=== PATIENT | male | born 1950 | race Two or more races ===

== ENCOUNTER 2022-08-09 18:50 | Inpatient (IN) | payer MEDICARE, OTHER ==
[~2022-08-09] VITALS: Ht 170.2 cm; Wt 91.6 kg
[2022-08-09] MEDS ORDERED: MORPHINE SULFATE 2 MG/1 ML DISP.SYRIN IV ONE (20:15)
[2022-08-09] MEDS ORDERED: ONDANSETRON 4 MG/2 ML VIAL IV ONE (20:15)
[2022-08-09 20:29] LABS: HEMATOCRIT 39.9 % (36.7-47.1); MEAN CORPUSCULAR VOLUME 86.4 fL (73.0-96.2); PLATELET COUNT (AUTO) 419 K/uL (152-348)
--- NOTE | 2022-08-09 20:35 | NUR ---
Consent for CT of abd/pelvis w/ contrast signed by patient. Dr. Palacios notified of patient's allergy to iodione. Per Dr. Palacios patient to proceed with CT w/contrast. Patient to receive Benadryl 50mg IV.
[2022-08-09] MEDS ORDERED: IV NORMAL SALINE 250 ML IV ONE (20:41)
[2022-08-09] MEDS ORDERED: IOHEXOL 300MG/ML 100 ML INFUS..BTL ONE (20:41)
[2022-08-09] MEDS ORDERED: SWABABLE VALVE TRANSFER SET EA MC ONE (20:41)
[2022-08-09] MEDS ORDERED: MORPHINE SULFATE 4 MG/1 ML DISP.SYRIN ONE (20:42)
[2022-08-09] MEDS ORDERED: ONDANSETRON 4 MG/2 ML VIAL ONE (20:42)
[2022-08-09] MEDS ORDERED: diphenhydrAMINE 50 MG/1 ML VIAL IV ONE (20:45)
[2022-08-09 20:47] LABS: ALANINE AMINOTRANSFERASE 26 U/L (16-63); ALKALINE PHOSPHATASE 103 U/L (50-136); ASPARTATE AMINOTRANSFERASE 14 U/L (15-37); BILIRUBIN,DIRECT 0.1 mg/dL (0.0-0.2); BILIRUBIN,TOTAL 0.5 mg/dL (0.2-1.0); CARBON DIOXIDE 31 mmol/L (21-32); CHLORIDE 101 mmol/L (98-107); CREATININE 0.8 mg/dL (0.6-1.3); GLUCOSE 102 mg/dL (74-106); LIPASE 64 U/L (73-393); POTASSIUM 4.1 mmol/L (3.5-5.1); TOTAL PROTEIN, SERUM 8.1 g/dL (6.4-8.2); UREA NITROGEN, BLOOD 17 mg/dL (7-18)
[2022-08-09] MEDS ORDERED: diphenhydrAMINE 50 MG/1 ML VIAL ONE (20:54)
--- NOTE | 2022-08-09 21:00 | NUR ---
Patient placed in 3L of oxygen via nasal cannula due patient desaturating post admnistration of morphine IV. Patient now oxygen saturating 97%.
--- NOTE | 2022-08-09 21:35 | NUR ---
Patient resting comfortably in bed, no signs of acute distress noted. Patient's family member at bedside.
[2022-08-09] MEDS ORDERED: IV NORMAL SALINE 1000 ML BAG IV ONE (22:15)
[2022-08-09] MEDS ORDERED: PIPERACILLIN SODIUM/TAZOBACTAM 3.375 G in IV DEXTROSE 5% 50 ML IV ONE (22:15)
[2022-08-09] MEDS ORDERED: PIPERACILLIN/TAZOBACTAM/D5W 50 ML IV ONE (22:33)
--- NOTE | 2022-08-09 22:38 | NUR ---
Dr. Palacios speaking with Dr. Reed for general surgery consult.
--- NOTE | 2022-08-09 22:43 | NUR ---
Per pt, unable to remember name of cholesterol and stomach medication.
[2022-08-09] MEDS ORDERED: AMLO-212 PO (22:44)
[2022-08-09] MEDS ORDERED: ASPI81TA31 PO (22:44)
[2022-08-09] MEDS ORDERED: METO25TA6 PO (22:44)
--- NOTE | 2022-08-10 00:12 | NUR ---
Dr. Quintana's on panel call with Pete ERWIN. Pending admission.
[2022-08-10] MEDS ORDERED: MAGNESIUM HYDROXIDE 30 ML LIQUID UDC PO PRN (00:15)
[2022-08-10] MEDS ORDERED: ONDANSETRON 4 MG/2 ML VIAL IV PRN (00:15)
[2022-08-10] MEDS ORDERED: IV NS 1000 ML 1,000 ML IV PRN (00:15)
[2022-08-10] MEDS ORDERED: MORPHINE SULFATE 2 MG/1 ML DISP.SYRIN IV PRN (00:15)
--- NOTE | 2022-08-10 00:32 | NUR ---
Called third floor to give report, RN unavaliable.
--- NOTE | 2022-08-10 00:39 | NUR ---
Report given to Marybel FRANCOIS.
[2022-08-10] MEDS ORDERED: MORPHINE SULFATE 4 MG/1 ML DISP.SYRIN ONE (00:42)
[2022-08-10] MEDS ORDERED: MORPHINE SULFATE 4 MG/1 ML DISP.SYRIN IV ONE (00:45)
[2022-08-10 00:59] LABS: *BILIRUBIN,URIN NEGATIVE (NEGATIVE); *BLOOD, URINE NEGATIVE (NEGATIVE); *CLARITY,URINE CLEAR (CLEAR); *COLOR,URINE YELLOW (YELLOW); *KETONES,URINE NEGATIVE (NEGATIVE); *UROBILINOGEN,URINE 0.2 E.U./dl (NORMAL); LEUKOCYTE ESTERASE ,URINE NEGATIVE (NEGATIVE); NITRITE, URINE NEGATIVE (NEGATIVE); PH,URINE 5.5 (5.0-8.0); UGLUCOSE NEGATIVE (NEGATIVE)
--- NOTE | 2022-08-10 01:14 | NUR ---
Patient taken to third floor room 302 via gurney with personal belongings. Patient in stable condition, no signs of distress noted.
[2022-08-10 01:32] VITALS: BP 124/71
[2022-08-10] MEDS: ENOXAPARIN SODIUM 40 MG/0.4 ML DISP.SYRIN SQ SCH ×2 (02:00→20:09)
--- NOTE | 2022-08-10 02:00 | NUR ---
RECEIVED REPORT FROM ER NURSE LUDY PATIENT IS ALERT BUT GERMAN SPEAKING PT CAME ON UNIT ASLEEP LUDY IN ER STATES"i WILL GIVE PATIENT MEDICATION BECAUSE IS STILL HAVING PAIN. PT IS ALERT AND ORIENTED X4 NO SIGNS OF RESPIRATORY DISTRESS NOTED. PT WAS GIVEN LOVENOX PLATELETS ELEVATED 437. PT TOLERATED WELL. NURSE TOOK INFORMATION FROM RECORDS PATIENT IS TOO TIRED COULDN'T ANSWER ADMISSION QUESTIONS. PT HAS IVF OF NS INFUSING AT 75ML AND HOUR TOLERATING WELL NO SIGNS OF INFILTRATION FROM SITE. PT IS ALSO NPO POSSIBLE SURGERY DR. ODOM FOR SURGERY.
[2022-08-10 04:00] VITALS: BP 106/53
--- NOTE | 2022-08-10 05:04 | NUR ---
PT HAS OXYGEN 3L NASAL CANULA NO SIGNS OF DISTRESS NOTED. WILL CONTINUE TO MONITOR FOR SAFETY. AND ENDORSE ADMISSION TO AM NURSE.
[2022-08-10] MEDS ORDERED: PIPERACILLIN SODIUM/TAZOBACTAM 3.375 G in IV DEXTROSE 5% 50 ML IV SCH (06:00)
--- NOTE | 2022-08-10 08:00 | NUR ---
AWAKE ALERT AND ORIENTED X3 DENIES PAIN OR SOB, NPO ORDERED PENDING SURGICAL CONSULT
[2022-08-10] MEDS: PANTOPRAZOLE SODIUM 40 MG VIAL IV SCH (08:27)
[2022-08-10] MEDS: PIPERACILLIN SODIUM/TAZOBACTAM 3.375 G in IV DEXTROSE 5% 100 ML IV SCH ×3 (08:28→23:19)
[2022-08-10] MEDS ORDERED: CLON0.1T PO (09:40)
[2022-08-10] MEDS ORDERED: ROSU40TA23 PO (09:40)
[2022-08-10] MEDS ORDERED: FLUT1BLS6 INH (09:40)
[2022-08-10] MEDS ORDERED: DOCU250C14 PO (09:40)
[2022-08-10] MEDS ORDERED: SERT-438 MT (09:40)
[2022-08-10] MEDS ORDERED: FOLI-140 MT (09:40)
[2022-08-10] MEDS ORDERED: FERR324T4 PO (09:40)
[2022-08-10] MEDS ORDERED: DILT240C99 MT (09:40)
[2022-08-10] MEDS ORDERED: GABA-532 MT (09:40)
[2022-08-10] MEDS ORDERED: DONE5TAB34 PO (09:40)
[2022-08-10] MEDS ORDERED: MONT10TA33 MT (09:40)
[2022-08-10] MEDS ORDERED: LINA145C MT (09:40)
[2022-08-10] MEDS ORDERED: CLOP75TA33 MT (09:40)
[2022-08-10] MEDS ORDERED: TRAM50TA2 MT (09:40)
[2022-08-10] MEDS ORDERED: ERGO500040 PO (10:29)
[2022-08-10] MEDS ORDERED: CYAN10006 IM (10:29)
[2022-08-10 10:35] LABS: HEMATOCRIT 39.9 % (36.7-47.1); MEAN CORPUSCULAR VOLUME 87.7 fL (73.0-96.2); PLATELET COUNT (AUTO) 397 K/uL (152-348)
[2022-08-10] MEDS: IV D5/ 0.9% NACL 1,000 ML IV PRN (10:35)
[2022-08-10 11:02] LABS: CREATININE 0.8 mg/dL (0.6-1.3); POTASSIUM 4.6 mmol/L (3.5-5.1)
[2022-08-10 11:09] LABS: BILIRUBIN,TOTAL 0.3 mg/dL (0.2-1.0); MAGNESIUM 2.2 mg/dL (1.8-2.4); PHOSPHOROUS 4.2 mg/dL (2.5-4.9); TOTAL PROTEIN, SERUM 7.7 g/dL (6.4-8.2)
[2022-08-10 11:13] LABS: THYROID STIMULATING HORMONE 0.396 mIU/mL (0.358-3.740)
[2022-08-10 11:51] VITALS: BP 127/79
--- NOTE | 2022-08-10 12:00 | NUR ---
AWAITING SURGICAL CONSULT. KEPT NPO, DR OLIVO IN WITH ORDERS, STARTED ON D5NS AT 80 MLS/HR
[2022-08-10] MEDS ORDERED: MORPHINE SULFATE 4 MG/1 ML DISP.SYRIN IV PRN (13:05)
--- NOTE | 2022-08-10 14:14 | NUR ---
SEEN BY SURGICAL PUBLIC HEALTH NUTRITIONIST UNDER DR HOSKINS AND SAID NO SURGICAL INTERVENTION NEEDED AND OK TO START PATIENT ON ON FULL LIQUID THEN ADVANCED TO [place]. DR OLIVO AWARE OF THE SURGICAL RECOMMENDATION
[2022-08-10 16:00] VITALS: BP 135/78
[2022-08-10 20:00] VITALS: BP 130/82
--- NOTE | 2022-08-10 20:00 | NUR ---
Nsg; Received patient lying in bed. alert and oriented x3,ambulatory. no c/o pain or discomfort at this time. uses urinal. ivf running well. Patient resting comfortably in bed, no signs of acute distress noted. Patient's family member at bedside.call light w/in reach.
[2022-08-10 23:36] VITALS: BP 147/72
--- NOTE | 2022-08-11 00:05 | NUR ---
NSG; Pt resting quietly. no s/s of pain or discomfort noted at this time. call light w/in reach.
[2022-08-11 04:00] VITALS: BP 141/85
[2022-08-11] MEDS: IV D5/ 0.9% NACL 1,000 ML IV PRN (05:04)
--- NOTE | 2022-08-11 06:07 | NUR ---
NSG: Remain calm and cooperative with meds and care. Patient resting comfortably in bed, no signs of acute distress noted. patient refused 2nd iv line. call light w/in reach.
[2022-08-11 07:18] LABS: HEMATOCRIT 36.4 % (36.7-47.1); MEAN CORPUSCULAR HEMOGLOBIN 28.1 uug (23.8-33.4); MEAN CORPUSCULAR VOLUME 86.6 fL (73.0-96.2); PLATELET COUNT (AUTO) 358 K/uL (152-348)
[2022-08-11 07:29] LABS: CREATININE 0.7 mg/dL (0.6-1.3); MAGNESIUM 1.9 mg/dL (1.8-2.4); POTASSIUM 3.8 mmol/L (3.5-5.1)
[2022-08-11] MEDS: PANTOPRAZOLE SODIUM 40 MG VIAL IV SCH (08:54)
[2022-08-11] MEDS: PIPERACILLIN SODIUM/TAZOBACTAM 3.375 G in IV DEXTROSE 5% 100 ML IV SCH ×3 (08:54→23:36)
--- NOTE | 2022-08-11 09:00 | NUR ---
Rcvd pt in bed. [id number] Estonian speaking. pt in 02 3lpm saturating 97%. IV LEFT HAND #22 INTACT AND PATENT WITH D5 NS RUNNING AT 80CC/HR. DENIES PAIN AT THIS PAIN.
[2022-08-11 12:00] VITALS: BP 147/86
[2022-08-11 16:00] VITALS: BP 149/92
[2022-08-11] MEDS: FLUTICASONE/VILANTEROL 1 EACH BLST.W.DEV INH SCH (17:15)
--- NOTE | 2022-08-11 17:30 | NUR ---
No respiratory distress O2 3LPM SATURATING 97%. IV ATB GIVEN AND PT TOLERATED IT. MID LINE INSERTED LEFT UPPER FOREARM. ADVANCED DIET FROM FULL LIQUID DIET TO SOFT DIET. IV D5 NS DISCONTINUED. FAMILY (SON) ON BED SIDE. DENIES PAIN AND DISCOMFORT.
[2022-08-11 19:54] VITALS: BP 147/83
[2022-08-11] MEDS: METOPROLOL TARTRATE 25 MG TABLET PO SCH (20:49)
[2022-08-11] MEDS: ENOXAPARIN SODIUM 40 MG/0.4 ML DISP.SYRIN SQ SCH (20:50)
[2022-08-12 04:00] VITALS: BP 136/77
[2022-08-12] MEDS ORDERED: PANTOPRAZOLE SODIUM 40 MG TABLET.DR PO SCH (07:00)
--- NOTE | 2022-08-12 07:00 | NUR ---
Pt [place] Citizen speaking assisted with ambulation to BR during the night, Pt denies any pain but observed SOB during ambulation. Pt has an episode of confusion during the night removing one peripheral IV, and stated that he didn't see any drip on the IV bag, explained to Pt that the drip is only 25 cc/hr, ML GABO remains intact. HOB elevated at all times pending Renal US TODAY, Endorse care to incoming nurse
[2022-08-12] MEDS: PIPERACILLIN SODIUM/TAZOBACTAM 3.375 G in IV DEXTROSE 5% 100 ML IV SCH (07:46)
[2022-08-12] MEDS: METOPROLOL TARTRATE 25 MG TABLET PO SCH (08:30)
[2022-08-12] MEDS: FLUTICASONE/VILANTEROL 1 EACH BLST.W.DEV INH SCH (08:30)
[2022-08-12 11:33] VITALS: BP 139/78
[2022-08-12] MEDS ORDERED: METR500T PO (15:22)
[2022-08-12] MEDS ORDERED: LEVO500T90 PO (15:22)
[2022-08-12 15:42] VITALS: BP 151/86
== END 2022-08-12 17:10 | disposition home or self-care (01) | DRG 373 ==
LOC: ER 18:50 → MEDSURG3 08-10 00:53
PROVIDERS: ADMIT Nurse Practitioner Acute Care; ATTEND Internal Medicine
PROC: 05HC33Z Insertion of Infusion Device into Left Basilic Vein, Percutaneous Approach (ICD-10-PCS; principal; 2022-08-10)
DX: K35.890 Other acute appendicitis without perforation or gangrene (principal); I71.43 Infrarenal abdominal aortic aneurysm, without rupture; I51.3 Intracardiac thrombosis, not elsewhere classified; E66.9 Obesity, unspecified; Z68.34 Body mass index [BMI] 34.0-34.9, adult; I10 Essential (primary) hypertension; E78.5 Hyperlipidemia, unspecified; Z79.82 Long term (current) use of aspirin; Z79.899 Other long term (current) drug therapy; D75.839 Thrombocytosis, unspecified; Z98.84 Bariatric surgery status; Z90.49 Acquired absence of other specified parts of digestive tract; Z20.822 Contact with and (suspected) exposure to COVID-19; Z87.11 Personal history of peptic ulcer disease; F17.210 Nicotine dependence, cigarettes, uncomplicated; Z91.041 Radiographic dye allergy status; I70.0 Atherosclerosis of aorta
CPT/HCPCS: 36415; 71045; 83605; 83690; 83735; 84100; 84443; 84484; 85025; 85610; 87040; 93005; 93307; A6209; C9113; G0378; J1200; J1650; J2270; J2405; J2543; J7040; J7042; Q9967

== ENCOUNTER 2024-01-18 12:47 | Emergency (ER) | payer MEDICARE ==
[~2024-01-18] VITALS: Ht 167.6 cm; Wt 90.7 kg
[~2024-01-18 12:47] MED LIST: AMLO-212 PO; ASPI81TA31 PO; CLON0.1T PO; CYAN10006 IM; DOCU250C14 PO; DONE5TAB34 PO; ERGO500040 PO; FERR324T4 PO; FLUT1BLS6 INH; LEVO500T90 PO; METO25TA6 PO; METR500T PO; ROSU40TA23 PO
[2024-01-18 13:16] LABS: BASOPHILS # (AUTO) 0.1 K/UL (0.0-0.2); BASOPHILS % (AUTO) 0.9 % (0.0-2.0); EOSINOPHILS # (AUTO) 0.2 K/uL (0.0-0.7); EOSINOPHILS % (AUTO) 2.8 % (0.0-7.0); HEMATOCRIT 42.5 % (36.7-47.1); HEMOGLOBIN 14.1 g/dL (12.5-16.3); LYMPHOCYTES # (AUTO) 1.7 K/uL (0.8-4.8); LYMPHOCYTES % (AUTO) 21.3 % (20.5-51.5); MEAN CORPUSCULAR HEMOGLOBIN 30.9 uug (23.8-33.4); MEAN CORPUSCULAR HGB CONC 33 g/dL (32.5-36.3); MONOCYTES # (AUTO) 0.8 K/uL (0.1-1.30); MONOCYTES % (AUTO) 10.2 % (0.0-11.0); NEUTROPHILS # (AUTO) 5.3 K/uL (1.8-8.9); NEUTROPHILS % (AUTO) 64.8 % (38.5-71.5); PLATELET COUNT (AUTO) 505 K/uL (152-348); RED BLOOD CELL COUNT(AUTO) 4.57 MIL/uL (4.06-5.63); RED CELL DISTRIBUTION WIDTH 18.7 % (12.1-16.2); WHITE BLOOD COUNT (AUTO) 8.1 K/uL (3.6-10.2)
[2024-01-18 13:19] LABS: DIFFERENTIAL COMMENT 1
[2024-01-18 13:36] LABS: ALANINE AMINOTRANSFERASE 17 U/L (16-63); ALBUMIN 3.9 g/dL (3.4-5.0); ALKALINE PHOSPHATASE 103 U/L (50-136); ASPARTATE AMINOTRANSFERASE 13 U/L (15-37); BILIRUBIN,DIRECT 0.1 mg/dL (0.0-0.2); BILIRUBIN,TOTAL 0.6 mg/dL (0.2-1.0); CALCIUM 9.3 mg/dL (8.5-10.1); CARBON DIOXIDE 29 mmol/L (21-32); CHLORIDE 104 mmol/L (98-107); CREATININE 0.7 mg/dL (0.6-1.3); GLUCOSE 87 mg/dL (74-106); LIPASE 28 U/L (16-77); SODIUM SERUM 142 mmol/L (136-145); TOTAL PROTEIN, SERUM 8.5 g/dL (6.4-8.2); UREA NITROGEN, BLOOD 16 mg/dL (7-18)
[2024-01-18 15:29] LABS: *BILIRUBIN,URIN NEGATIVE (NEGATIVE); *BLOOD, URINE NEGATIVE (NEGATIVE); *CLARITY,URINE CLEAR (CLEAR); *COLOR,URINE YELLOW (YELLOW); *KETONES,URINE TRACE (NEGATIVE); *PROTEIN,URINE TRACE (NEGATIVE); *UROBILINOGEN,URINE 0.2 E.U./dl (NORMAL); LEUKOCYTE ESTERASE ,URINE NEGATIVE (NEGATIVE); NITRITE, URINE NEGATIVE (NEGATIVE); PH,URINE 5.5 (5.0-8.0); UGLUCOSE NEGATIVE (NEGATIVE)
[2024-01-18 15:43] LABS: BACTERIA,URINE NONE SEEN /HPF (NONE SEEN); RBC,URINE NONE SEEN /HPF (0-3); SQUAMOUS EPITHELIAL CELL,UR FEW /HPF (NONE SEEN); WBC,URINE 0-3 /HPF (0-3)
[2024-01-18] MEDS ORDERED: HYDR-3972 PO (16:24)
[2024-01-18] MEDS ORDERED: CIPR-262 PO (16:24)
[2024-01-18 16:35] VITALS: BP 145/82; O2SAT 94
== END 2024-01-18 16:37 | disposition home or self-care (01) ==
LOC: ER 12:48
DX: N41.0 Acute prostatitis (principal); R93.5 Abnormal findings on diagnostic imaging of other abdominal regions, including retroperitoneum; M54.50 Low back pain, unspecified; J43.9 Emphysema, unspecified; F17.210 Nicotine dependence, cigarettes, uncomplicated; E78.5 Hyperlipidemia, unspecified; K43.9 Ventral hernia without obstruction or gangrene; N32.81 Overactive bladder; N40.0 Benign prostatic hyperplasia without lower urinary tract symptoms; N50.82 Scrotal pain; I10 Essential (primary) hypertension; Z79.82 Long term (current) use of aspirin; Z79.899 Other long term (current) drug therapy; Z90.3 Acquired absence of stomach [part of]; Z90.49 Acquired absence of other specified parts of digestive tract; Z91.041 Radiographic dye allergy status
CPT/HCPCS: 36415; 76870; 83690; 84484; 85025; 85730; A4606; A4663